=== PATIENT | female | born 1975 | race Caucasian/White ===

== ENCOUNTER → 2024-09-28 | Outpatient (CLI) | payer OTHER ==
--- NOTE | 2024-09-28 10:01 | XR ---
EXAMINATION TYPE: XR abdomen 1V DATE OF EXAM: 09/28/2024 9:17 AM CLINICAL INDICATION: Female, 49 years old with history of R1031 RLQ PAIN, pain TECHNIQUE: 1 supine view of the abdomen. COMPARISON: None. FINDINGS: Scattered gas is seen in non-distended small bowel loops. Gas and fecal material is seen in non-distended colon. There is no visceromegaly or abnormal calcification appreciated. The lung bases are clear. The osseous structures are intact. IMPRESSION: Overall nonobstructive bowel gas pattern. [facility], , 09/28/2024 9:59 AM
== END | disposition home or self-care (01) ==
LOC: RADXRYALE 08:52
PROVIDERS: ATTEND Physician Assistant
DX: R10.31 Right lower quadrant pain (principal)
CPT/HCPCS: 74018

== ENCOUNTER → 2024-10-04 | Outpatient (CLI) | payer OTHER ==
--- NOTE | 2024-10-04 15:40 | US ---
EXAMINATION TYPE: US transvaginal DATE OF EXAM: 10/04/2024 COMPARISON: NONE CLINICAL INDICATION: Female, 49 years old with history of R10.31 RIGHT LOWER QUADRANT PAIN; RLQ pain. Hx of bilateral tubal removal. Hx of left oophorectomy March 2024. TECHNIQUE: Transvaginal (TV). Doppler imaging: Not performed. FINDINGS: Date of LMP: February 2024 EXAM MEASUREMENTS: Uterus: 6.0 x 5.8 x 3.7 cm Endometrial Stripe: 0.6 cm Right Ovary: 4.6 x 2.1 x 2.0 cm Left Ovary: Surgically absent 1. Uterus: Anteverted many fibroids seen. Largest measuring 2.1 x 2.0 x 1.9cm at fundus 2. Endometrium: appears heterogeneous and possible small fluid collection seen adjacent to endo (see image 47) 3. Right Ovary: anechoic area seen measuring 2.9 x 2.0 x 2.4cm with layering debris thought to be pr esent. 4. Left Ovary: Surgically absent 5. Bilateral Adnexa: wnl 6. Posterior cul-de-sac: wnl IMPRESSION: 1. Right ovarian cyst with layering debris suggested which could represent blood plaques in setting of hemorrhagic cyst. 2. Uterine fibroids. 3. Endometrium at the upper limits of normal for patient's age. 4. Surgically absent left ovary. [facility], , 10/04/2024 3:37 PM
== END | disposition home or self-care (01) ==
LOC: RADUSWWP 14:21
PROVIDERS: ATTEND Family Medicine
DX: N83.201 Unspecified ovarian cyst, right side (principal); D25.9 Leiomyoma of uterus, unspecified; Z90.721 Acquired absence of ovaries, unilateral
CPT/HCPCS: 76830